=== PATIENT | male | born 1980 | race Caucasian/White ===

== ENCOUNTER 2020-04-09 07:46 | Day surgery (SDC) | payer BC ==
[~2020-04-09 07:46] MED LIST: Sodium Chloride 0.9% 10 ML Syringe FLUSH PRN
[2020-04-09] MEDS ORDERED: Dexmedetomidine 200 MCG/2 ML SDV IV ONE (07:47)
[2020-04-09] MEDS ORDERED: Propofol 200 MG/20 ML SDV IV ONE (07:47)
[2020-04-09] MEDS ORDERED: Dexamethasone 4 MG/ML SDV IVPUSH ONE (07:47)
[2020-04-09] MEDS ORDERED: Lidocaine 2% 5 ML SDV IV ONE (07:47)
[2020-04-09] MEDS ORDERED: Ketorolac 30 MG/ML SDV IVPUSH ONE (07:47)
[2020-04-09] MEDS ORDERED: Ondansetron 4 MG/2 ML SDV IVPUSH ONE (07:47)
[2020-04-09] MEDS ORDERED: fentaNYL 100 MCG/2 ML SDV IV ONE (07:47)
[2020-04-09] MEDS ORDERED: Midazolam 1 MG/ML 2 ML SDV IV ONE (07:47)
[2020-04-09] MEDS: Lactated Ringers 1,000 ML IV SCH (08:45)
[2020-04-09] MEDS: Lidocaine 1% with EPINEPHrine 1:100,000 20 ML MDV INJECT ONE (09:04)
[2020-04-09] MEDS: Bupivacaine 0.5% 30 ML SDV INJECT ONE (09:04)
--- NOTE | 2020-04-09 10:28 | PCM.OPNOTE ---
- General Post-Op/Procedure Note Date of Surgery/Procedure: 04/09/20 Operative Procedure(s): umbilical hernia repair with mesh Findings: 4 cm umbilical hernia with incarcerated omentum. Pre Op Diagnosis: umbilical hernia without mention of obstruction or gangrene Post-Op Diagnosis: Same Anesthesia Technique: General LMA, Local (8 ml 1 % lido with epi/0.5% buvipicaine) Primary Surgeon: Barry Jackson Anesthesia Provider: Ayesha Esparza Pathology: omentum and hernia sac was not submitted for exam. 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 It was immediately recognized, Two small punture wounds approx 0.25 mm (measured) were noted and were 3 mm no other damage noted. This was repaired with a line of lambert sutures. There was NO spillage of any material. was informed post operatively Condition: Good Free Text/Narrative:: see dictation [id number]
[2020-04-09] MEDS: Acetaminophen/HYDROcodone 325-5 MG Tab PO ONE (10:34)
[2020-04-09 11:55] VITALS: BP 122/79; PULSE 73
--- NOTE | 2020-04-09 12:39 | OR ---
DATE OF OPERATION: 04/09/2020 SURGEON: Barry Jackson MD PROCEDURE PERFORMED: Umbilical hernia repair. PREOPERATIVE DIAGNOSIS: Umbilical hernia without mention of obstruction or gangrene. POSTOPERATIVE DIAGNOSIS: Umbilical hernia without mention of obstruction or gangrene. INDICATIONS FOR PROCEDURE: This is a 39-year-old white male who was referred with a hernia. It has been present for many years. It has recently been causing him some discomfort, and he was offered and accepted repair of this defect. FINDINGS: Defect of approximately 4 cm was identified. There was some incarceration of some omentum, and it was repaired by Ventralex ST hernia patch, reference #[id number], lot #[id number], with an expiration date of 07/06/2020. 8 mL of a 1:1 mixture of 1% lidocaine with epinephrine 0.5% bupivacaine was also used. DESCRIPTION OF PROCEDURE: After an excellent LMA anesthesia was administered, the patient was prepped and draped in the usual sterile manner. Our local was used to infiltrate the area around the umbilicus in a field block. A curvilinear incision was then made at the base of the patient's belly button. A combination of sharp dissection was carried out, and the hernia sac was dissected free from the surrounding tissue except for the superior most part of the hernia. This was due to the fact that the hernia was fairly large and bilobar in shape. We entered the hernia sac inferiorly and carefully dissected free the incarcerated omentum which had several adhesions in this sac. This was done using a combination of sharp scissors dissection as well as LigaSure dissection as well. The LigaSure was also used to transect a small portion of the omentum which had 3 small holes present, and this was removed to prevent formation of an internal hernia. Having mobilized the omentum completely and resecting it, the hernia sac was then transected from the anterior abdominal wall using the LigaSure. Digital palpation revealed there was no palpable fat or adhesions on the anterior abdominal wall. We grasped the superior aspect of the patient's fascia with a Karlos goiter clamps. It was immediately noted that, as the patient was breathing with the LMA, a piece of small intestine had slipped in and was caught in the small intestine. The clamp was immediately removed. The small intestine was delivered into the operative field and carefully inspected. Two 0.25 mm puncture wounds were noted. There was no spillage of any succus. No other damage was noted. These 2 puncture wounds were by about 3 mm. This was repaired with a line of interrupted Lembert stitch to imbricate the area over these puncture wounds to prevent leakage. The intestine was then returned to normal anatomic position. The mesh itself was then soaked. The fascia was then grasped and elevated using Allis clamps, and the mesh was placed into the abdominal cavity and brought up against the anterior abdominal wall. It was fixed circumferentially as it was an 8 cm piece of mesh with an Optifast to prevent slippage of any other intraabdominal contents between the mesh and the anterior abdominal wall. The two tails were then excised. The fascia was then closed with a running 0 prolene. The area was irrigated, and the umbilicus was tacked to the anterior abdominal wall using a [id number] of 0 Vicryl. A running 3-0 Vicryl was used to close the skin, and laterally, to aid in approximation of the skin, there were two 3-0 chromics also used. We used absorbable suture as the patient has a very high anxiety level. Steri-Strips were applied. Needle, sponge, and instrument counts were reported as correct. The patient was taken to the recovery room in good condition. /[id number] /ROSANAL
== END 2020-04-09 11:42 | disposition home or self-care (01) ==
LOC: FB.SDS 07:46
PROVIDERS: ATTEND Surgery
DX: K42.9 Umbilical hernia without obstruction or gangrene (principal); F41.9 Anxiety disorder, unspecified; Z79.899 Other long term (current) drug therapy; G47.33 Obstructive sleep apnea (adult) (pediatric); I10 Essential (primary) hypertension; I48.0 Paroxysmal atrial fibrillation
CPT/HCPCS: 00750-QZ; 94150; A9270-GY; C1781; J0690; J1100; J1885; J2001; J2250; J2405; J2704; J3010; J3490; J7120